=== PATIENT | male | born 1975 | race Two or more races ===

== ENCOUNTER 2022-08-26 04:46 | Emergency (ER) | payer OTHER ==
[2022-08-26 05:06] VITALS: BP 149/88; PULSE 86; RESP 17; TEMP 98.1; BMI 30.1
== END 2022-08-26 09:15 | disposition home or self-care (01) ==
LOC: JER 04:46
DX: S22.41XA Multiple fractures of ribs, right side, initial encounter for closed fracture (principal); W19.XXXA Unspecified fall, initial encounter
CPT/HCPCS: 71046-TC-FY; 99283-25